=== PATIENT | male | born 1955 | race Caucasian/White ===

== ENCOUNTER → 2017-01-13 10:57 | Emergency (ER) | payer BC ==
[~2017-01-13 10:57] MED LIST: NS 0.9% 1000 ML*IV.FLUID BOLUS ONE
[2017-01-13 12:36] LABS: Hematocrit 35 % (42-52); Hemoglobin 11.6 g/dl (14.0-18.0); Mean Corpuscular HGB Conc 33 g/dl (31-36); Mean Corpuscular Hemoglobin 31 pg (27-31); Mean Corpuscular Volume 94 fL (80-94); Mean Platelet Volume 7 um3 (7.4-10.4); Red Blood Count 3.78 10^6/ul (4.0-5.4); Red Cell Distribution Width 15 % (10.5-15); White Blood Count 5.8 10^3/ul (3.5-10.8)
[2017-01-13 12:47] LABS: Albumin 3.1 g/dL (3.2-5.2); BUN/Creatinine Ratio 22.9 (8-20); Calcium 8.4 mg/dL (8.6-10.3); EGFR African American 92.3 (>60); EGFR Non-African American 71.8 (>60); Globulin 2.9 g/dL (2-4); Magnesium 1.8 mg/dL (1.9-2.7); Potassium 4.3 mmol/L (3.5-5.0); Total Bilirubin 0.2 mg/dL (0.2-1.0)
[2017-01-13 12:49] LABS: Troponin I 0.02 ng/mL (<0.04)
[2017-01-13 13:00] LABS: TSH (Thyroid Stimulating Horm) 1.97 mcIU/mL (0.34-5.60)
[2017-01-13 17:03] VITALS: BP 129/109
--- NOTE | 2017-01-13 18:25 | ED ---
Dusty Parish Benjamin, scribed for Jake Serrato MD on 01/13/17 at 1243 . Dizziness - HPI Summary HPI Summary: 61yo male c/o of dizziness and near-syncopal state since yesterday. Pt was dizzy yesterday and this morning. Pt has hx of HTN and heroin abuse, and was just put on multiple new meds yesterday for his BP and detox. Pt is in the process of detox since 12/21. Pt denies nausea or pain anywhere but reports general weakness. - History Of Current Complaint Chief Complaint: EDDizziness Stated Complaint: LOW BLOOD PRESSURE Time Seen by Provider: 01/13/17 11:51 Hx Obtained From: Patient Onset/Duration: Still Present, Suddenly Timing: Constant Severity Initially: Mild Severity Currently: Mild Character: Dizzy Aggravating Factor(s): Nothing Alleviating Factor(s): Nothing Associated Signs And Symptoms: Positive: Negative, Other: - weakness - Allergies/Home Medications Allergies/Adverse Reactions: Allergies Allergy/AdvReac Type Severity Reaction Status Date / Time No Known Allergies Allergy Verified 01/13/17 12:08 Home Medications: Home Medications Acetaminophen TAB* [Tylenol TAB*] 325 - 650 mg PO Q4H PRN 01/13/17 [History Confirmed 01/13/17] Buprenorphine HCl-Naloxone HCl [Suboxone] 3 strip SL DAILY 01/13/17 [History Confirmed 01/13/17] DULoxetine DR CAP* [Cymbalta CAP*] 40 mg PO DAILY 01/13/17 [History Confirmed ] Disulfiram TAB* [Antabuse 250 MG TAB*] 250 mg PO BID 01/13/17 [History Confirmed 01/13/17] Divalproex DR TAB(*) [Depakote DR TAB(*)] 250 mg PO BID 01/13/17 [History Confirmed 01/13/17] Doxepin (NF) [Silenor (NF)] 6 mg PO BEDTIME PRN 01/13/17 [History Confirmed ] Gabapentin CAP(*) [Neurontin 400 mg CAP(*)] 400 mg PO QID 01/13/17 [History Confirmed 01/13/17] Ruabhdsjzjd-Duxwokfoqme-Zed C- [Glucosamine Chondroitin] 1 tab PO BID 01/13/17 [ History Confirmed 01/13/17] Ibuprofen TAB* [Advil TAB*] 200 - 400 mg PO Q4HR PRN 01/13/17 [History Confirmed 01/13/17] Melatonin 5 mg PO BEDTIME PRN 01/13/17 [History Confirmed 01/13/17] Multivitamins/Minerals TAB* [Theragran/minerals TAB*] 1 tab PO DAILY 01/13/17 [ History Confirmed 01/13/17] Nabumetone TAB* [Relafen TAB*] 500 mg PO TID 01/13/17 [History Confirmed ] cloNIDine TAB* [Catapres 0.1 MG TAB*] 0.1 mg PO TID 01/13/17 [History Confirmed 01/13/17] diPHENhydraMINE PO* [Benadryl PO 25 MG TAB*] 25 - 75 mg PO BEDTIME PRN 01/13/17 [History Confirmed 01/13/17] PMH/Surg Hx/FS Hx/Imm Hx Cardiovascular History: Reports: Hx Hypertension Psychiatric History: Reports: Hx Substance Abuse - heroin Infectious Disease History: Yes Infectious Disease History: Denies: Traveled Outside the [place] in Last 30 Days - Family History Known Family History: Positive: Hypertension Negative: Diabetes - Social History Occupation: Unemployed Lives: Alone Alcohol Use: UTD Substance Use Type: Reports: Cocaine, Heroin Substance Use Comment - Amount & Last Used: December 21 at [facility] now Smoking Status (MU): Unknown if Ever Smoked Review of Systems Constitutional: Negative Eyes: Negative ENT: Negative Cardiovascular: Negative Respiratory: Negative Gastrointestinal: Negative Genitourinary: Negative Musculoskeletal: Negative Skin: Negative Neurological: Other - dizziness Positive: Weakness, Syncope - near syncopal Psychological: Normal All Other Systems Reviewed And Are Negative: Yes Physical Exam Triage Information Reviewed: Yes Vital Signs On Initial Exam: Initial Vitals Temp Pulse Resp BP Pulse Ox 98.3 F 68 17 102/72 96 01/13/17 11:01 01/13/17 11:01 01/13/17 11:01 01/13/17 11:01 01/13/17 11:01 Vital Signs Reviewed: Yes Appearance: Positive: Well-Appearing, No Pain Distress, Well-Nourished Skin: Positive: Warm, Skin Color Reflects Adequate Perfusion, Dry Head/Face: Positive: Normal Head/Face Inspection Eyes: Positive: Normal ENT: Positive: Normal ENT inspection Neck: Positive: Supple, Nontender Respiratory/Lung Sounds: Positive: Clear to Auscultation, Breath Sounds Present Cardiovascular: Positive: RRR Abdomen Description: Positive: Nontender, Soft Bowel Sounds: Positive: Present Musculoskeletal: Positive: Normal, Strength/ROM Intact Neurological: Positive: Normal, Sensory/Motor Intact, Alert, Oriented to Person Place, Time, CN Intact II-III Psychiatric: Positive: Affect/Mood Appropriate - [place] Coma Scale Coma Scale Total: 15 Diagnostics - Vital Signs Vital Signs Temp Pulse Resp BP Pulse Ox 01/13/17 11:01 98.3 F 68 17 102/72 96 - Laboratory Lab Results: Lab Results 01/13/17 Range/Units 11:46 WBC 5.8 (3.5-10.8) 10^3/ul RBC 3.78 L (4.0-5.4) 10^6/ul Hgb 11.6 L (14.0-18.0) g/dl Hct 35 L (42-52) % MCV 94 (80-94) fL MCH 31 (27-31) pg MCHC 33 (31-36) g/dl RDW 15 (10.5-15) % Plt Count 165 (150-450) 10^3/ul MPV 7 L (7.4-10.4) um3 Neut % (Auto) 46.8 (38-83) % Lymph % (Auto) 38.4 (25-47) % Hendricks % (Auto) 9.8 H (1-9) % Eos % (Auto) 4.3 (0-6) % Baso % (Auto) 0.7 (0-2) % Absolute Neuts (auto) 2.7 (1.5-7.7) 10^3/ul Absolute Lymphs (auto) 2.2 (1.0-4.8) 10^3/ul Absolute Monos (auto) 0.6 (0-0.8) 10^3/ul Absolute Eos (auto) 0.2 (0-0.6) 10^3/ul Absolute Basos (auto) 0 (0-0.2) 10^3/ul Absolute Nucleated RBC 0.01 10^3/ul Nucleated RBC % 0.1 Result Diagrams: 01/13/17 11:46 01/13/17 11:46 Lab Statement: Any lab studies that have been ordered have been reviewed, and results considered in the medical decision making process. - EKG 1115. Cardiac Rate: NL - 67bpm EKG Rhythm: Sinus Rhythm ST Segment: Normal Ectopy: None Dizzy Course/Dx - Course Course Of Treatment: Mr. Sotomayor came in from [facility] C/O weakness and feeling faint. He has just been at [facility] for a week or so and had new medicines started yesterday. He was a bit hypotensive on arrival which improved on its own while he was resting and getting labs. I recommended that he go back to [facility] and they review his meds. - Diagnoses Provider Diagnoses: Medication reaction Discharge - Discharge Plan Condition: Stable Disposition: HOME Patient Education Materials: Adverse Drug Reaction (ED) Referrals: [facility] [Outside] Non Staff,Doctor [Primary Care Provider] - The documentation as recorded by the Dusty calhoun Benjamin accurately reflects the service I personally performed and the decisions made by me, Jake Serrato MD.
== END | disposition home or self-care (01) ==
LOC: ED 10:57
DX: R42 Dizziness and giddiness (principal); T50.905A Adverse effect of unspecified drugs, medicaments and biological substances, initial encounter; Y92.9 Unspecified place or not applicable; I10 Essential (primary) hypertension
CPT/HCPCS: 36415; 80053; 83605; 83735; 84443; 84484; 85025; 93005; 99283